=== PATIENT | male | born 1995 | race Caucasian/White ===

== ENCOUNTER 2020-03-13 19:20 | Emergency (ER) | payer SELFPAY ==
[~2020-03-13] VITALS: Ht 177.8 cm; Wt 72.6 kg
[~2020-03-13 19:20] MED LIST: IBUP800 PO; Norco 5-325 Ta1 EACH PO; Zofran Odt4 MG SL
[2020-03-13] MEDS ORDERED: HYDR1TAB94 PO (22:09)
== END 2020-03-13 22:20 | disposition home or self-care (01) ==
LOC: ER 19:20
DX: S16.1XXA Strain of muscle, fascia and tendon at neck level, initial encounter (principal); W22.8XXA Striking against or struck by other objects, initial encounter
CPT/HCPCS: 73030; 99283-25; A9270; A9270-GY